=== PATIENT | male | born 1955 | race Caucasian/White ===

== ENCOUNTER 2018-07-31 08:52 | Emergency (ER) | payer OTHER ==
[~2018-07-31] VITALS: Ht 177.8 cm; Wt 86.6 kg
[2018-07-31 08:58] VITALS: Ht 177.8 cm; Wt 86.6 kg
[2018-07-31 10:27] VITALS: BP 150/69
== END 2018-07-31 10:25 | disposition home or self-care (01) ==
LOC: ED 08:52
DX: R22.0 Localized swelling, mass and lump, head (principal); I10 Essential (primary) hypertension; E11.9 Type 2 diabetes mellitus without complications; E78.5 Hyperlipidemia, unspecified
CPT/HCPCS: 82962; J2930; Q0163

== ENCOUNTER 2019-07-03 09:31 | Emergency (ER) | payer OTHER ==
[~2019-07-03] VITALS: Ht 177.8 cm; Wt 86.2 kg
[2019-07-03 09:41] VITALS: Ht 177.8 cm; Wt 86.2 kg
[2019-07-03 10:57] LABS: BASOPHIL % 0.2 % (0-2); PLATELET COUNT 203 x10^3mcL (130-400); RED CELL DISTRIBUTION WIDTH 12.5 % (11.5-14.5)
[2019-07-03 11:06] LABS: CALCIUM 9.1 mg/dL (8.5-10.1); CARBON DIOXIDE 22.3 mmol/L (21-32); CHLORIDE SERUM 100 mmol/L (98-107); GFR1 > 60 mL/min; GLUCOSE SERUM 234 mg/dL (74-106); SODIUM SERUM 137 mmol/L (136-145)
[2019-07-03 11:37] LABS: microscopic required? YES; urine erythrocyte 3+ (NEGATIVE)
[2019-07-03 13:18] VITALS: BP 135/87
== END 2019-07-03 13:18 | disposition home or self-care (01) ==
LOC: ED 09:31
PROVIDERS: Emergency Medicine
DX: R33.9 Retention of urine, unspecified (principal); R31.9 Hematuria, unspecified; I10 Essential (primary) hypertension; E11.9 Type 2 diabetes mellitus without complications; E78.5 Hyperlipidemia, unspecified
CPT/HCPCS: 36415